=== PATIENT | female | born 1975 | race Caucasian/White ===

== ENCOUNTER 2020-01-16 07:39 | Outpatient (CLI) | payer BC | END 2020-01-16 08:04 | disposition home or self-care (01) | LOC: MAMO-SONO 07:39 | PROVIDERS: ATTEND Obstetrics & Gynecology | DX: N83.01 Follicular cyst of right ovary (principal); N83.02 Follicular cyst of left ovary; N60.11 Diffuse cystic mastopathy of right breast; N60.12 Diffuse cystic mastopathy of left breast ==